=== PATIENT | male | born 1975 | race Two or more races ===

== ENCOUNTER 2021-01-10 06:48 | Emergency (ER) | payer MEDICAID ==
[~2021-01-10] VITALS: Ht 162.6 cm; Wt 58.1 kg
[2021-01-10] MEDS ORDERED: ZIPRASIDONE 20 MG INJ IM ONE ×2 (07:00→07:07)
[2021-01-10 07:16] LABS: BASOPHILS % (AUTO) 0 % (0-1); EOSINOPHILS % (AUTO) 1 % (1-7); LYMPHOCYTES % (AUTO) 15 % (22-44); MEAN CORPUSCULAR HEMOGLOBIN 31.2 pg (27.5-34.5); MEAN CORPUSCULAR HGB CONC 33.5 g/dL (33.2-36.2); MEAN PLATELET VOLUME 6.5 fL (7.4-10.4); MONOCYTES % (AUTO) 7 % (2-9); NEUTROPHILS % (AUTO) 77 % (42-75); PLATELET COUNT 290 x10^3/uL (130-400); RED BLOOD COUNT 4.43 x10^6/uL (4.38-5.82); RED CELL DISTRIBUTION WIDTH 14.1 % (9.4-14.8)
[2021-01-10 07:19] LABS: MD NO
[2021-01-10 07:26] LABS: ALBUMIN 4.1 g/dL (3.4-5.0); ANION GAP 7 mmol/L (5-15); CALCIUM 9.1 mg/dL (8.5-10.1); CHLORIDE 104 mmol/L (98-107); CREATININE 1.06 mg/dL (0.7-1.3); SALICYLATE LEVEL 2.9 mg/dL (2.8-20.0)
[2021-01-10] MEDS ORDERED: PLEASE ENTER ALLERGIES MC SCH (07:30)
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
[2021-01-10] MEDS ORDERED: PROZAC PO (07:52)
[2021-01-10] MEDS ORDERED: QUET100T4 PO (07:53)
[2021-01-10] MEDS ORDERED: LAMICTAL PO (07:53)
[2021-01-10 08:09] LABS: AMPHETAMINE SCREEN, URINE Positive (Negative); BARBITURATE SCREEN, URINE Negative (Negative); BENZODIAZEPINE SCREEN, URINE Negative (Negative); CANNABINOID SCREEN, URINE Positive (Negative); COCAINE SCREEN, URINE Negative (Negative); METHADONE SCREEN, URINE Negative (Negative); OPIATE SCREEN, URINE Negative (Negative)
--- NOTE | 2021-01-10 10:50 | NUR ---
PT RESTING IN BED, RESPS EVEN AND UNLABORED, NADN. PT STATES HE IS FEELING BETTER, SAYING HE IS "NOT FEELING SUICIDAL BUT WANTS TO GET HELP". NO COMPLAINTS AT THIS TIME. SITTER AT BEDSIDE, GARAGE DOORS DOWN, SAFETY PRECAUTIONS IN PLACE.
[2021-01-10 11:52] VITALS: BP 106/68
--- NOTE | 2021-01-10 11:53 | NUR ---
PT RESTING IN BED, A&O, RESPS EVEN AND UNLABORED, VSS, NADN. SITTER AT BEDSIDE, GARAGE DOORS DOWN, SAFETY PRECATIONS IN PLACE.
--- NOTE | 2021-01-10 12:04 | NUR ---
PSYCH BODY HANGER DENISHA AT BEDSIDE FOR EVAL AND TO DISCUSS POC.
[2021-01-10] MEDS ORDERED: QUET200T4 PO (12:34)
--- NOTE | 2021-01-10 12:51 | NUR ---
PT EDUCATED ON DISCHARGE INSTRUCTIONS, FOLLOW-UP, AND RETURN CRITERIA, VERBALIZED UNDERSTANDING. PT A&O, RESPS EVEN AND UNLABORED, NADN. AMBULATORY TO DISCHARGE WITH STEADY GAIT, NO COMPLAINTS AT TIME OF DISCHARGE. TAXI VOUCHER PROVIDED.
== END 2021-01-10 12:55 | disposition home or self-care (01) ==
LOC: ED 08:20
DX: F33.9 Major depressive disorder, recurrent, unspecified (principal); F15.10 Other stimulant abuse, uncomplicated; R45.851 Suicidal ideations; R44.1 Visual hallucinations
CPT/HCPCS: 36415; 80048; 80299; 80307; 80320; 80329; 82040; 85025; 99284; G0480

== ENCOUNTER 2021-01-18 00:16 | Emergency (ER) | payer MEDICARE, MEDICAID ==
[~2021-01-18] VITALS: Ht 162.6 cm; Wt 64.5 kg
[~2021-01-18 00:16] MED LIST: LAMICTAL PO; PROZAC PO; QUET100T4 PO; QUET200T4 PO
[2021-01-18] MEDS ORDERED: OLANZAPINE ODT 10MG ONE ×2 (00:29→01:46)
[2021-01-18] MEDS ORDERED: OLANZAPINE ODT 10MG PO ONE ×2 (00:30→02:00)
[2021-01-18 00:56] VITALS: BP 137/81
--- NOTE | 2021-01-18 01:57 | NUR ---
preceptor rn: pt refusing second zyprexa. pt states he wants to leave and hes going to call an uber to [facility]. pt ambulated to dc desk with a steady gait. paperwork provided.
== END 2021-01-18 01:59 | disposition home or self-care (01) ==
LOC: ED 01:40
DX: F15.150 Other stimulant abuse with stimulant-induced psychotic disorder with delusions (principal); F20.9 Schizophrenia, unspecified; Z72.9 Problem related to lifestyle, unspecified; F31.9 Bipolar disorder, unspecified; F17.210 Nicotine dependence, cigarettes, uncomplicated
CPT/HCPCS: 99283; 99406